=== PATIENT | male | born 1975 | race African-American/Black ===

== ENCOUNTER 2017-02-22 00:18 | Emergency (ER) | payer SELFPAY ==
[~2017-02-22] VITALS: Ht 167.6 cm; Wt 99.8 kg
--- NOTE | 2017-02-22 01:05 | PHYS DOC ---
Past Medical History Past Medical History: Other Additional Past Medical Histor: substance abuse Past Surgical History: No Surgical History Alcohol Use: None Drug Use: Phencyclidine Adult General Chief Complaint Chief Complaint: DRUG ABUSE HPI HPI Patient is a 42 year old male who presents to the emergency department for evaluation of altered mental status. Patient was found in the front yard of a residential district at [address] [place] [address] and [facility]. The homeowner called 911 due to a suspicious person in the front yard. The patient was found confused. Patient reportedly smoked PCP prior to being found in the neighbors yard. Patient was brought to the emergency department for further evaluation. Currently the patient is alert and oriented. Patient denies any use of drugs earlier today. Patient has no other complaints at this time. Patient is unable to recall earlier events of the day. Review of Systems Review of Systems Constitutional: Denies fever or chills [] Eyes: Denies change in visual acuity, redness, or eye pain [] HENT: Denies nasal congestion or sore throat [] Respiratory: Denies cough or shortness of breath [] Cardiovascular: Denies chest pain or edema [] GI: Denies abdominal pain, nausea, vomiting, bloody stools or diarrhea [] : Denies dysuria or hematuria [] Musculoskeletal: Denies back pain or joint pain [] Integument: Denies rash or skin lesions [] Neurologic: Denies headache, focal weakness or sensory changes [] Endocrine: Denies polyuria or polydipsia [] Current Medications Current Medications Current Medications Medications (Trade) Dose Ordered Sig/Nelly Start Time Stop Time Status Last Admin Dose Admin Sodium Chloride 1,000 ml @ 1,000 mls/hr 1X ONCE 02/22/17 01:30 02/22/17 02:29 Allergies Allergies Allergies Coded Allergies Type Severity Reaction Last Updated Verified No Known Drug Allergies 10/27/13 No Physical Exam Physical Exam Constitutional: Alert, afebrile, no acute distress. [] HENT: Normocephalic, atraumatic, bilateral external ears normal, oropharynx moist, no oral exudates, nose normal. [] Eyes: PERRLA, EOMI, conjunctiva normal, no discharge. [] Neck: Normal range of motion, no tenderness, supple, no stridor. [] Cardiovascular:Heart rate regular rhythm, no murmur [] Lungs & Thorax: Bilateral breath sounds clear to auscultation [] Abdomen: Bowel sounds normal, soft, no tenderness, no masses, no pulsatile masses. [] Skin: Warm, dry, no erythema, no rash. [] Back: No tenderness, no CVA tenderness. [] Extremities: No tenderness, no cyanosis, no clubbing, ROM intact, no edema. [] Neurologic: Alert and oriented X 3, normal motor function, normal sensory function, no focal deficits noted. [] Current Patient Data Vital Signs Vital Signs Date Time Temp Pulse Resp B/P (MAP) Pulse Ox O2 Delivery O2 Flow Rate FiO2 02/22/17 00:27 96 18 131/76 (94) 97 Room Air Lab Values Laboratory Tests Test 02/22/17 00:55 02/22/17 01:20 White Blood Count 5.3 x10^3/uL (4.0-11.0) Red Blood Count 4.30 x10^6/uL (4.30-5.70) Hemoglobin 12.6 g/dL (13.0-17.5) L Hematocrit 38.3 % (39.0-53.0) L Mean Corpuscular Volume 89 fL (79-100) Mean Corpuscular Hemoglobin 29 pg (25-35) Mean Corpuscular Hemoglobin Concent 33 g/dL (31-37) Red Cell Distribution Width 15.6 % (11.5-14.5) H Platelet Count 281 x10^3/uL (140-400) Neutrophils (%) (Auto) 62 % (31-73) Lymphocytes (%) (Auto) 29 % (24-48) Monocytes (%) (Auto) 6 % (0-9) Eosinophils (%) (Auto) 2 % (0-3) Basophils (%) (Auto) 1 % (0-3) Neutrophils # (Auto) 3.3 x10^3uL (1.8-7.7) Lymphocytes # (Auto) 1.5 x10^3/uL (1.0-4.8) Monocytes # (Auto) 0.3 x10^3/uL (0.0-1.1) Eosinophils # (Auto) 0.1 x10^3/uL (0.0-0.7) Basophils # (Auto) 0.1 x10^3/uL (0.0-0.2) Sodium Level 144 mmol/L (136-145) Potassium Level 3.8 mmol/L (3.5-5.1) Chloride Level 107 mmol/L (98-107) Carbon Dioxide Level 26 mmol/L (21-32) Anion Gap 11 (6-14) Blood Urea Nitrogen 11 mg/dL (8-26) Creatinine 0.9 mg/dL (0.7-1.3) Estimated GFR (Cockcroft-Gault) 111.4 BUN/Creatinine Ratio 12 (6-20) Glucose Level 98 mg/dL (70-99) Calcium Level 8.5 mg/dL (8.5-10.1) Magnesium Level 2.2 mg/dL (1.8-2.4) Total Bilirubin 0.2 mg/dL (0.2-1.0) Aspartate Amino Transferase (AST) 25 U/L (15-37) Alanine Aminotransferase (ALT) 32 U/L (16-63) Alkaline Phosphatase 53 U/L (46-116) Total Protein 7.0 g/dL (6.4-8.2) Albumin 3.8 g/dL (3.4-5.0) Albumin/Globulin Ratio 1.2 (1.0-1.7) Ethyl Alcohol Level 33 mg/dL (0-10) H Urine Collection Type Unknown Urine Color Yellow Urine Clarity Clear Urine pH 6.5 Urine Specific [place] 1.015 Urine Protein Negative mg/dL (NEG-TRACE) Urine Glucose (UA) Negative mg/dL (NEG) Urine Ketones (Stick) Negative mg/dL (NEG) Urine Blood Negative (NEG) Urine Nitrite Negative (NEG) Urine Bilirubin Negative (NEG) Urine Urobilinogen Dipstick 0.2 mg/dL (0.2 mg/dL) Urine Leukocyte Esterase Negative (NEG) Urine RBC Occ /HPF (0-2) Urine WBC 1-4 /HPF (0-4) Urine Squamous Epithelial Cells Occ /LPF Urine Bacteria 0 /HPF (0-FEW) Urine Hyaline Casts Few /HPF Urine Mucus Marked /LPF Urine Opiates Screen Neg (NEG) Urine Methadone Screen Neg (NEG) Urine Barbiturates Neg (NEG) Urine Phencyclidine Screen Pos (NEG) Urine Amphetamine/Methamphetamine Neg (NEG) Urine Benzodiazepines Screen Neg (NEG) Urine Cocaine Screen Neg (NEG) Urine Cannabinoids Screen Neg (NEG) Urine Ethyl Alcohol Pos (NEG) Laboratory Tests 02/22/17 00:55 Laboratory Tests 02/22/17 00:55 EKG EKG Interpreted by me: Heart rate 97, sinus rhythm, normal intervals, normal axis, no acute ST/T-wave abnormalities present Radiology/Procedures Radiology/Procedures Not performed [] Course & Med Decision Making Course & Med Decision Making Pertinent Labs and Imaging studies reviewed. (See chart for details) Patient was started on IV fluids in the emergency department. Patient's lab work was remarkable for PCP and alcohol. The patient on reevaluation is alert and oriented and would like to go home. Discussed cessation of illicit substances. He is currently in a condition to be able to travel by cab. Patient will be transported back to his residence. Dragon Disclaimer Dragon Disclaimer This electronic medical record was generated, in whole or in part, using a voice recognition dictation system. Departure Departure Impression: Primary Impression: Substance abuse Disposition: HOME, SELF-CARE Condition: IMPROVED Referrals: UNKNOWN PCP NAME (PCP) Patient Instructions: Substance Abuse-Brief Additional Instructions: You were seen in the emergency department due to intoxication from alcohol and PCP. It is recommended that you discontinue use of these substances. Return to emergency department for any worsening symptoms. LANG RICARDO MD February 22, 2017 01:05
[2017-02-22 01:06] LABS: BASO # 0.1 x10^3/uL (0.0-0.2); BASO % 1 % (0-3); EOS % 2 % (0-3); HEMATOCRIT 38.3 % (39.0-53.0); HEMOGLOBIN 12.6 g/dL (13.0-17.5); LYMPH # 1.5 x10^3/uL (1.0-4.8); LYMPH % 29 % (24-48); MEAN CORPUSCULAR HEMOGLOBIN 29 pg (25-35); MEAN CORPUSCULAR HGB CONC 33 g/dL (31-37); MEAN CORPUSCULAR VOLUME 89 fL (79-100); MONO % 6 % (0-9); NEUT % 62 % (31-73); PLATELET COUNT 281 x10^3/uL (140-400); RED CELL DISTRIBUTION WIDTH 15.6 % (11.5-14.5); WHITE BLOOD COUNT 5.3 x10^3/uL (4.0-11.0)
[2017-02-22 01:15] LABS: CALCIUM 8.5 mg/dL (8.5-10.1); CREATININE 0.9 mg/dL (0.7-1.3); GFR 111.4; POTASSIUM 3.8 mmol/L (3.5-5.1)
[2017-02-22 01:20] LABS: ALBUMIN 3.8 g/dL (3.4-5.0); ALBUMIN/GLOBULIN RATIO 1.2 (1.0-1.7); MAGNESIUM 2.2 mg/dL (1.8-2.4); TOTAL BILIRUBIN 0.2 mg/dL (0.2-1.0)
[2017-02-22] MEDS ORDERED: IV NORMAL SALINE 1000ML BAG 1,000 ML IV ONE ×2 (01:30)
[2017-02-22 01:34] LABS: BACTERIA,URINE 0 /HPF (0-FEW); BILIRUBIN,URINE NEGATIVE (NEG); GLUCOSE,URINE NEGATIVE (NEG); NITRITE,URINE NEGATIVE (NEG); PH,URINE 6.5; PROTEIN,URINE NEGATIVE (NEG-TRACE); RBC,URINE OCC /HPF (0-2); SQUAMOUS EPITHELIAL CELL,UR OCC /LPF; UROBILINOGEN,URINE 0.2 mg/dL (0.2 mg/dL)
[2017-02-22 01:36] LABS: BARBITURATES NEG (NEG); BENZODIAZEPINES NEG (NEG); CANNABINOIDS NEG (NEG); COCAINE NEG (NEG); METHADONE NEG (NEG); OPIATES NEG (NEG); PHENCYCLIDINE POS (NEG)
[2017-02-22 01:40] VITALS: BP 123/66
--- NOTE | 2017-02-22 07:14 | EKG ---
[facility] [address] [place] [address] Test Date: 2017-02-22 Test Time: 00:23:37 Pat Name: JIO LUKE Department: Room: Gender: M Turn Laster: : 1975 Requested By: LANG RICARDO Order Number: [id number] Reading MD: Royce Ulrich Measurements Intervals Mittie Rate: 97 P: 37 CO: 150 QRS: 62 QRSD: 80 T: 15 QT: 332 QTc: 426 Interpretive Statements SINUS RHYTHM Electronically Signed On 02-22-2017 10:47:30 CDT by Royce Ulrich
== END 2017-02-22 02:20 | disposition home or self-care (01) ==
LOC: ER 00:18
DX: F19.10 Other psychoactive substance abuse, uncomplicated (principal)
CPT/HCPCS: 36415; 80053; 80305; 80320; 81001; 83735; 85027; 93005; 96360; 99285; J7030; G0480; G0481

== ENCOUNTER 2017-03-11 10:00 | Emergency (ER) | payer SELFPAY | END 2017-03-11 10:07 | disposition left against medical advice (07) | LOC: ER 10:00 | DX: F19.10 Other psychoactive substance abuse, uncomplicated (principal); Z53.21 Procedure and treatment not carried out due to patient leaving prior to being seen by health care provider ==

== ENCOUNTER 2017-06-21 05:56 | Emergency (ER) | payer SELFPAY ==
[~2017-06-21] VITALS: Ht 167.6 cm; Wt 99.8 kg
[2017-06-21] MEDS ORDERED: ZIPRASIDONE IM 20 MG VIAL. IM ONE ×2 (06:12→06:30)
--- NOTE | 2017-06-21 06:32 | PHYS DOC ---
Past Medical History Past Medical History: Other Additional Past Medical Histor: substance abuse, pre diabetic Past Surgical History: No Surgical History Alcohol Use: None Drug Use: Phencyclidine Adult General Chief Complaint Chief Complaint: DRUG ABUSE HPI HPI Patient is a 42 year old male who presents with altered mental status. PD was called to patient's house because he was acting erratically and smashing his head into the wall. They found mild PCP in the home and suspected this was the cause. Upon my evaluation the patient does not voice any complaints but does not appear to be thinking clearly, knows he's in hospital in [facility]. Review of Systems Review of Systems unAble to obtain due to patient's clinical condition Current Medications Current Medications Current Medications Medications (Trade) Dose Ordered Sig/Nelly Start Time Stop Time Status Last Admin Dose Admin Ziprasidone (Geodon Im) 10 mg 1X ONCE 06/21/17 06:30 06/21/17 06:31 DC Allergies Allergies Allergies Coded Allergies Type Severity Reaction Last Updated Verified No Known Drug Allergies 10/27/13 No Physical Exam Physical Exam Constitutional: Well developed, well nourished, no acute distress, non-toxic appearance. [] HENT: Normocephalic, atraumatic, bilateral external ears normal, oropharynx moist, no oral exudates, nose normal. [] Eyes:EOMI, conjunctiva normal, no discharge. [] Neck: Normal range of motion, no tenderness, supple, no stridor. [] Cardiovascular:Heart rate regular rhythm, no murmur [] Lungs & Thorax: Bilateral breath sounds clear to auscultation [] Abdomen: soft, no tenderness, no masses, no pulsatile masses. [] Skin: Warm, dry, no erythema, no rash. [] Back: No tenderness, no CVA tenderness. [] Extremities: No tenderness, no cyanosis, no clubbing, ROM intact, no edema. [] Neurologic: Alert ,normal motor function, normal sensory function, no focal deficits noted. [] Current Patient Data Vital Signs Vital Signs Date Time Temp Pulse Resp B/P (MAP) Pulse Ox O2 Delivery O2 Flow Rate FiO2 06/21/17 06:37 82 18 150/94 (112) 99 Room Air 06/21/17 05:56 99.1 99.1 EKG EKG [] Radiology/Procedures Radiology/Procedures [] Course & Med Decision Making Course & Med Decision Making Pertinent Labs and Imaging studies reviewed. (See chart for details) Patient continued to require police handcuff restraints after being here for approximately 20 minutes. Pt in restraints . Therefore ordered Geodon 10 mg IM but pt calmed and did not require this. Able to come out of restraints without difficulty. Counseled pt on the dangers of illegal drugs, which he admitted to PCP use, and stressed not using this dangerous drug. Referred to follow-up with PCP for HTN Dragon Disclaimer Dragon Disclaimer This electronic medical record was generated, in whole or in part, using a voice recognition dictation system. Departure Departure Impression: Primary Impression: Substance abuse Additional Impression: Hypertension Disposition: 01 HOME, SELF-CARE Condition: IMPROVED Referrals: NO PCP (PCP) Patient Instructions: Hypertension, Substance Abuse-Brief Problem Qualifiers RM RAYA MD Jun 21, 2017 06:32
[2017-06-21 07:05] VITALS: BP 152/90
== END 2017-06-21 07:15 | disposition home or self-care (01) ==
LOC: ER 05:56
DX: F19.10 Other psychoactive substance abuse, uncomplicated (principal); I10 Essential (primary) hypertension
CPT/HCPCS: 99283

== ENCOUNTER 2018-12-22 23:00 | Emergency (ER) | payer SELFPAY ==
[~2018-12-22] VITALS: Ht 177.8 cm; Wt 99.8 kg
[2018-12-23 00:01] LABS: BASO % 0 % (0-3); EOS # 0.1 x10^3/uL (0.0-0.7); EOS % 2 % (0-3); HEMATOCRIT 43.4 % (39.0-53.0); HEMOGLOBIN 14.6 g/dL (13.0-17.5); LYMPH # 1.1 x10^3/uL (1.0-4.8); LYMPH % 24 % (24-48); MEAN CORPUSCULAR HEMOGLOBIN 30 pg (25-35); MEAN CORPUSCULAR HGB CONC 34 g/dL (31-37); MEAN CORPUSCULAR VOLUME 89 fL (79-100); MONO # 0.3 x10^3/uL (0.0-1.1); MONO % 7 % (0-9); NEUT % 67 % (31-73); PLATELET COUNT 232 x10^3/uL (140-400); RED BLOOD COUNT 4.86 x10^6/uL (4.30-5.70); RED CELL DISTRIBUTION WIDTH 14.5 % (11.5-14.5); WHITE BLOOD COUNT 4.5 x10^3/uL (4.0-11.0)
[2018-12-23 00:03] LABS: CREATININE 0.7 mg/dL (0.7-1.3); GFR 148.2; POTASSIUM 4.1 mmol/L (3.5-5.1)
[2018-12-23 00:08] LABS: ALBUMIN 4.1 g/dL (3.4-5.0); ALBUMIN/GLOBULIN RATIO 1.2 (1.0-1.7); MAGNESIUM 2.1 mg/dL (1.8-2.4); TOTAL BILIRUBIN 0.2 mg/dL (0.2-1.0); TOTAL PROTEIN 7.4 g/dL (6.4-8.2)
--- NOTE | 2018-12-23 00:14 | PHYS DOC ---
Past Medical History Past Medical History: Diabetes-Type II, Other Additional Past Medical Histor: substance abuse Past Surgical History: No Surgical History Alcohol Use: None Drug Use: Phencyclidine Adult General Chief Complaint Chief Complaint: DRUG ABUSE HPI HPI Patient is a 43 year old male who presents to the emergency department tonight by EMS after using PCP at 21:00 tonight. His interview was limited by his altered mental status. He was able to recount prior history of using PCP even prior to this most recent incident. He admits using consuming alcohol recently during this incident. He does appear to show remorse by stating, "I made a mistake." Review of Systems Review of Systems ROS limited due to patient's intoxication. Current Medications Current Medications Current Medications Medications (Trade) Dose Ordered Sig/Nelly Start Time Stop Time Status Last Admin Dose Admin Sodium Chloride 1,000 ml @ 1,000 mls/hr 1X ONCE 12/23/18 00:30 12/23/18 01:29 12/23/18 00:04 1,000 MLS/HR Allergies Allergies Allergies Coded Allergies Type Severity Reaction Last Updated Verified No Known Drug Allergies 10/27/13 No Physical Exam Physical Exam Constitutional: Well developed, well nourished, appears dizzy. Eyes: PERRL, bilateral L and R horizontal nystagmus. Neck: Normal range of motion, no tenderness, supple, no stridor. Cardiovascular:Heart rate regular rhythm, no murmur. Lungs & Thorax: Bilateral breath sounds clear to auscultation. Abdomen: Bowel sounds normal, soft, no tenderness, no masses, no pulsatile masses. Back: No tenderness, no CVA tenderness. Neurologic: Alert and obtunded but awakes to voice. GCS 13. Psychologic: Affect normal, judgement poor. Current Patient Data Vital Signs Vital Signs Date Time Temp Pulse Resp B/P (MAP) Pulse Ox O2 Delivery O2 Flow Rate FiO2 12/22/18 23:08 98.8 67 16 133/83 (100) 94 Room Air 98.8 Lab Values Laboratory Tests Test 12/22/18 23:45 White Blood Count 4.5 x10^3/uL (4.0-11.0) Red Blood Count 4.86 x10^6/uL (4.30-5.70) Hemoglobin 14.6 g/dL (13.0-17.5) Hematocrit 43.4 % (39.0-53.0) Mean Corpuscular Volume 89 fL (79-100) Mean Corpuscular Hemoglobin 30 pg (25-35) Mean Corpuscular Hemoglobin Concent 34 g/dL (31-37) Red Cell Distribution Width 14.5 % (11.5-14.5) Platelet Count 232 x10^3/uL (140-400) Neutrophils (%) (Auto) 67 % (31-73) Lymphocytes (%) (Auto) 24 % (24-48) Monocytes (%) (Auto) 7 % (0-9) Eosinophils (%) (Auto) 2 % (0-3) Basophils (%) (Auto) 0 % (0-3) Neutrophils # (Auto) 3.0 x10^3uL (1.8-7.7) Lymphocytes # (Auto) 1.1 x10^3/uL (1.0-4.8) Monocytes # (Auto) 0.3 x10^3/uL (0.0-1.1) Eosinophils # (Auto) 0.1 x10^3/uL (0.0-0.7) Basophils # (Auto) 0.0 x10^3/uL (0.0-0.2) Sodium Level 142 mmol/L (136-145) Potassium Level 4.1 mmol/L (3.5-5.1) Chloride Level 103 mmol/L (98-107) Carbon Dioxide Level 26 mmol/L (21-32) Anion Gap 13 (6-14) Blood Urea Nitrogen 10 mg/dL (8-26) Creatinine 0.7 mg/dL (0.7-1.3) Estimated GFR (Cockcroft-Gault) 148.2 BUN/Creatinine Ratio 14 (6-20) Glucose Level 107 mg/dL (70-99) H Calcium Level 9.0 mg/dL (8.5-10.1) Magnesium Level 2.1 mg/dL (1.8-2.4) Total Bilirubin 0.2 mg/dL (0.2-1.0) Aspartate Amino Transferase (AST) 25 U/L (15-37) Alanine Aminotransferase (ALT) 32 U/L (16-63) Alkaline Phosphatase 52 U/L (46-116) Total Protein 7.4 g/dL (6.4-8.2) Albumin 4.1 g/dL (3.4-5.0) Albumin/Globulin Ratio 1.2 (1.0-1.7) Lipase 138 U/L (73-393) Ethyl Alcohol Level 16 mg/dL (0-10) H Laboratory Tests 12/22/18 23:45 Laboratory Tests 12/22/18 23:45 EKG EKG [] Radiology/Procedures Radiology/Procedures [] Course & Med Decision Making Course & Med Decision Making Patient is a 43 year old male who presents to the emergency department tonight by EMS after using PCP at 21:00 tonight. He is being observed until he is more oriented and medically stable to be discharged. Dragon Disclaimer Dragon Disclaimer This electronic medical record was generated, in whole or in part, using a voice recognition dictation system. Departure Departure Impression: Primary Impression: PCP (phencyclidine) abuse Disposition: 01 HOME, SELF-CARE Condition: STABLE Referrals: NO PCP (PCP) Patient Instructions: Drug Abuse, FASEEMA Yarbrough DO Dec 23, 2018 00:14
[2018-12-23] MEDS ORDERED: IV NORMAL SALINE 1000ML BAG 1,000 ML IV ONE (00:30)
[2018-12-23 01:03] VITALS: BP 118/74
[2018-12-23 01:04] LABS: BILIRUBIN,URINE NEGATIVE (NEG); CLARITY,URINE CLEAR; COLOR,URINE YELLOW; NITRITE,URINE NEGATIVE (NEG); PROTEIN,URINE NEGATIVE (NEG-TRACE); UROBILINOGEN,URINE 0.2 mg/dL (0.2 mg/dL)
[2018-12-23 01:10] LABS: BARBITURATES NEG (NEG); BENZODIAZEPINES NEG (NEG); CANNABINOIDS NEG (NEG); COCAINE NEG (NEG); METHADONE NEG (NEG); OPIATES NEG (NEG); PHENCYCLIDINE POS (NEG)
[2018-12-23 01:11] LABS: AMPHETAMINE/METHAMPHETAMINE NEG (NEG)
[2018-12-23 01:17] LABS: BACTERIA,URINE 0 /HPF (0-FEW); RBC,URINE OCC /HPF (0-2); SQUAMOUS EPITHELIAL CELL,UR OCC /LPF; WBC,URINE 0 /HPF (0-4)
== END 2018-12-23 01:15 | disposition home or self-care (01) ==
LOC: ER 23:00
DX: F16.20 Hallucinogen dependence, uncomplicated (principal); R41.82 Altered mental status, unspecified; E11.9 Type 2 diabetes mellitus without complications
CPT/HCPCS: 36415; 80053; 80307; 81001; 83690; 83735; 85025; 99284; G0480; J7030

== ENCOUNTER 2021-05-08 07:30 | Emergency (ER) | payer SELFPAY ==
[~2021-05-08] VITALS: Ht 166.4 cm; Wt 97.7 kg
[2021-05-08 07:40] VITALS: BP 138/67
[2021-05-08] MEDS ORDERED: IBUPROFEN 200 MG TABLET. PO ONE (08:30)
--- NOTE | 2021-05-08 09:03 | RAD ---
EXAM: RIGHT SHOULDER 3 VIEWS. HISTORY: Right shoulder pain. COMPARISON: None. FINDINGS: No fractures are identified. The glenohumeral joint space is not profiled, but it appears a t least mildly narrowed. Alignment is maintained. Acromioclavicular osteoarthritis is mild to moderat e for patient age. IMPRESSION: 1. The glenohumeral joint space is not profiled, but mild osteoarthritis is suspected. 2. Mild to moderate acromioclavicular osteoarthritis. Electronically signed by: Sarika Valenzuela MD (05/08/2021 9:01 AM) [id number]
--- NOTE | 2021-05-08 13:19 | PHYS DOC ---
Past Medical History Past Medical History: Diabetes-Type II, Other Additional Past Medical Histor: substance abuse Past Surgical History: No Surgical History Smoking Status: Current Every Day Smoker Alcohol Use: None Drug Use: Phencyclidine General Adult EDM: Chief Complaint: SHOULDER INJURY HPI: HPI: Patient is a 46 year old male who presents with 1 week of right shoulder pain. Started after moving a heavy west at work. Has gotten worse over the course of the week. Has tried some [id number] medications for pain control. Sligh tly worse with range of motion, but is still able to fully move his arm. Denies any trauma. No fever/chills. No skin changes or redness overlying the shoulder. Review of Systems: Review of Systems: Constitutional: Denies fever or chills. [] Eyes: Denies change in visual acuity. [] HENT: Denies nasal congestion or sore throat. [] Respiratory: Denies cough or shortness of breath. [] Cardiovascular: Denies chest pain or edema. [] GI: Denies abdominal pain, nausea, vomiting, bloody stools or diarrhea. [] : Denies dysuria. [] Musculoskeletal: + Right shoulder pain. Denies back pain. [] Integument: Denies rash. [] Neurologic: Denies headache, focal weakness or sensory changes. [] Endocrine: Denies polyuria or polydipsia. [] Lymphatic: Denies swollen glands. [] Psychiatric: Denies depression or anxiety. [] Heart Score: C/O Chest Pain: N/A Risk Factors: Risk Factors: DM, Current or recent (<one month) smoker, HTN, HLP, family history of CAD, obesity. Risk Scores: Score 0 - 3: 2.5% MACE over next 6 weeks - Discharge Home Score 4 - 6: 20.3% MACE over next 6 weeks - Admit for Clinical Observation Score 7 - 10: 72.7% MACE over next 6 weeks - Early Invasive Strategies Family History: Family History: No pertinent family history Current Medications: Current Medications Medications (Trade) Dose Ordered Sig/Nelly Start Time Stop Time Status Last Admin Dose Admin Ibuprofen (Motrin) 600 mg 1X ONCE 05/08/21 08:30 05/08/21 08:31 DC 05/08/21 08:41 600 MG Allergies: Allergies: Allergies Coded Allergies Type Severity Reaction Last Updated Verified No Known Drug Allergies 10/27/13 No Physical Exam: PE: Constitutional: Well developed, well nourished, no acute distress, non-toxic appearance. [] HENT: Normocephalic, atraumatic, bilateral external ears normal, oropharynx mois t, no oral exudates, nose normal. [] Eyes: PERRLA, EOMI, conjunctiva normal, no discharge. [] Neck: Normal range of motion, no tenderness, supple, no stridor. [] Cardiovascular:Heart rate regular rhythm, no murmur [] Lungs & Thorax: Bilateral breath sounds clear to auscultation [] Abdomen: Bowel sounds normal, soft, no tenderness, no masses, no pulsatile masses. [] Skin: Warm, dry, no erythema, no rash. [] Back: No tenderness, no CVA tenderness. [] Extremities: Right shoulder and clavicle are nontender to palpation. No overlying skin changes such as erythema, edema, or tenderness. He has full range of motion, although some pain with it. Is able to lift his arm fully over his head. Good strength with abduction, internal, and external rotation. Good distal poultry helper strength, finger abduction, and wrist extension. [] Neurologic: Alert and oriented X 3, normal motor function, normal sensory function, no focal deficits noted. [] Psychologic: Affect normal, judgement normal, mood normal. [] Current Patient Data: Vital Signs: Vital Signs Date Time Temp Pulse Resp B/P (MAP) Pulse Ox O2 Delivery O2 Flow Rate FiO2 05/08/21 07:40 98.7 77 22 138/67 (89) Room Air 98.7 EKG: EKG: [] Radiology/Procedures: Radiology/Procedures: [] Impression: [facility] [address] [place], [place] [id number] IMAGING REPORT Signed PATIENT: JOI LUKE ACCOUNT: [id number] : 1975 LOCATION: ER AGE: 46 SEX: M EXAM STATUS: PRE ER ORD. PHYSICIAN: DALJIT MORGAN MD REASON: SHOULDER PAIN PROCEDURE: SHOULDER 2+V RIGHT EXAM: RIGHT SHOULDER 3 VIEWS. HISTORY: Right shoulder pain. COMPARISON: None. FINDINGS: No fractures are identified. The glenohumeral joint space is not profiled, but it appears at least mildly narrowed. Alignment is maintained. Acromioclavicular osteoarthritis is mild to moderate for patient age. IMPRESSION: 1. The glenohumeral joint space is not profiled, but mild osteoarthritis is suspected. 2. Mild to moderate acromioclavicular osteoarthritis. Electronically signed by: Sarika Valenzuela MD (05/08/2021 9:01 AM) [id number] DICTATED and SIGNED BY: DALJIT VALENZUELA MD DATE: 05/08/21 [id number] Course & Med Decision Making: Course & Med Decision Making Pertinent Labs and Imaging studies reviewed. (See chart for details) Patient 46-year-old male who presents with 1 week of right shoulder pain. Sound like it may be related to overuse at work. On exam has no evidence of overlying skin infection or signs of septic joint. Do not feel that he requires arthrocentesis. He has good range of motion and strength, reassuring against rotator cuff complete tear. X-ray shows osteoarthritis without any evidence of fracture dislocation. I gave him the number for local PCPs and an orthopedist. Recommended ibuprofen and Tylenol. Dragon Disclaimer: Dragon Disclaimer: This electronic medical record was generated, in whole or in part, using a voice recognition dictation system. Departure Departure Impression: Primary Impression: Primary osteoarthritis, right shoulder Disposition: HOME / SELF CARE / HOMELESS Condition: STABLE Referrals: XOCHILT VILLEDA MD Additional Instructions: Your x-ray did not show any problems such as a fracture or dislocation in your shoulder. I did show some evidence of arthritis. This is chronic inflammation of the bone/joint. Treatment is aimed at anti-inflammatory medications such as ibuprofen. For pain tylenol and ibuprofen are best used on a schedule. Please alternate between the two. -Tylenol 1000 mg every 6 hours (do not exceed 4000 mg in one day) -Ibuprofen 800 mg every 8 hours. Take with food. Do not take for more than 1 week. DALJIT MORGAN MD May 08, 2021 13:19
== END 2021-05-08 10:21 | disposition home or self-care (01) ==
LOC: ER 07:30
DX: M19.011 Primary osteoarthritis, right shoulder (principal); F17.200 Nicotine dependence, unspecified, uncomplicated; E11.9 Type 2 diabetes mellitus without complications
CPT/HCPCS: 73030; 99283